=== PATIENT | female | born 1985 | race African-American/Black ===

== ENCOUNTER 2024-01-20 07:48 | Emergency (ER) | payer OTHER, MEDICAID ==
[~2024-01-20] VITALS: Ht 170.2 cm; Wt 81.6 kg
[2024-01-20] MEDS ORDERED: LIDOCAINE 5% (PATCH) 1 EA PATCH TP ONE (08:38)
[2024-01-20] MEDS ORDERED: ACETAMINOPHEN 325 MG TABLET ONE (08:38)
[2024-01-20] MEDS: ACETAMINOPHEN 325 MG TABLET PO ONE (09:03)
[2024-01-20] MEDS: IV NS 0.9% 1,000 ML BAG IV ONE (09:03)
[2024-01-20] MEDS: LIDOCAINE 5% (PATCH) 1 EA PATCH TP STA (09:06)
[2024-01-20] MEDS ORDERED: CYCL5TAB PO (09:24)
[2024-01-20] MEDS ORDERED: LIDO30AD10 TP (09:24)
[2024-01-20] MEDS ORDERED: IBUP-1955 PO (09:24)
[2024-01-20 09:50] VITALS: BP 135/87; TEMP 97.9; O2SAT 100
== END 2024-01-20 09:50 | disposition home or self-care (01) ==
LOC: ER 07:54
DX: S16.1XXA Strain of muscle, fascia and tendon at neck level, initial encounter (principal); S29.012A Strain of muscle and tendon of back wall of thorax, initial encounter; S76.011A Strain of muscle, fascia and tendon of right hip, initial encounter; S00.81XA Abrasion of other part of head, initial encounter; M25.551 Pain in right hip; M54.9 Dorsalgia, unspecified; R07.89 Other chest pain; V43.52XA Car driver injured in collision with other type car in traffic accident, initial encounter; Y93.89 Activity, other specified; Y92.488 Other paved roadways as the place of occurrence of the external cause; Y99.8 Other external cause status
CPT/HCPCS: 99284; 72125; 96360; 71045; 72170; 71120; 70450; J7030

== ENCOUNTER 2024-02-14 10:12 | Emergency (ER) | payer MEDICAID, OTHER ==
[~2024-02-14] VITALS: Ht 170.2 cm; Wt 77.1 kg
[~2024-02-14 10:12] MED LIST: CYCL5TAB PO; IBUP-1955 PO; LIDO30AD10 TP
[2024-02-14 10:30] VITALS: TEMP 97.9
[2024-02-14 11:07] LABS: BASOPHILS % (AUTO) 0.6 % (0.0-2.0); EOSINOPHILS # (AUTO) 0.1 K/uL (0.0-0.7); EOSINOPHILS % (AUTO) 1.5 % (0.0-6.0); HEMATOCRIT 39 % (33-45); HEMOGLOBIN 12.5 g/dL (11.5-14.8); LYMPHOCYTES % (AUTO) 19.9 % (20.0-44.0); MEAN CORPUSCULAR HEMOGLOBIN 26 PG (26.0-33.0); MEAN CORPUSCULAR HGB CONC 32 g/dl (31.0-36.0); MEAN CORPUSCULAR VOLUME 81 fL (82-100); MONOCYTES # (AUTO) 0.5 K/uL (0.1-1.30); MONOCYTES % (AUTO) 9.3 % (2.0-12.0); NEUTROPHILS # (AUTO) 3.5 K/uL (1.8-8.9); NEUTROPHILS % (AUTO) 68.7 % (43.0-81.0); PLATELET COUNT (AUTO) 250 K/uL (150-450); RED BLOOD CELL COUNT(AUTO) 4.83 MIL/uL (4.0-5.2); RED CELL DISTRIBUTION WIDTH 14.6 % (11.5-15.0); WHITE BLOOD COUNT (AUTO) 5.1 K/uL (4.3-11.0)
[2024-02-14 11:31] LABS: CALCIUM, SERUM 8.7 mg/dL (8.5-10.1); CREATININE 1.1 mg/dL (0.6-1.3); POTASSIUM 3.8 mmol/L (3.5-5.1)
[2024-02-14 11:33] LABS: ALBUMIN 3.5 g/dL (3.4-5.0); BILIRUBIN,DIRECT 0.1 mg/dL (0.0-0.2); BILIRUBIN,TOTAL 0.2 mg/dL (0.2-1.0); TOTAL PROTEIN, SERUM 8.8 g/dL (6.4-8.2)
[2024-02-14 13:32] VITALS: BP 149/101; O2SAT 99
== END 2024-02-14 13:32 | disposition home or self-care (01) ==
LOC: ER 10:17
DX: K92.2 Gastrointestinal hemorrhage, unspecified (principal); N94.89 Other specified conditions associated with female genital organs and menstrual cycle; R07.89 Other chest pain; R10.9 Unspecified abdominal pain
CPT/HCPCS: 36415; 71045-TC; 80048-TC; 80076-TC; 83690-TC; 85025-TC